=== PATIENT | male | born 1965 | race Caucasian/White ===

== ENCOUNTER 2022-03-04 15:05 | Emergency (ER) | payer SELFPAY ==
[2022-03-04] MEDS ORDERED: Sodium Chloride 0.9% 10 ML Syringe FLUSH PRN (15:10)
[2022-03-04] MEDS ORDERED: Tenecteplase 50 MG Kit IV ONE (15:13)
[2022-03-04] MEDS ORDERED: Heparin Sodium 5,000 Units/ML Vial IVPUSH ONE (15:14)
[2022-03-04] MEDS ORDERED: Heparin Sodium/D5W 25,000 UNITS/500 ML BAG IV SCH (15:15)
[2022-03-04] MEDS ORDERED: Nitroglycerin/D5W 25 MG/250 ML BOTTLE IV SCH (15:30)
[2022-03-04] MEDS ORDERED: Nitroglycerin/D5W 25 MG/250 ML BOTTLE ONE (15:32)
[2022-03-04 17:16] LABS: ESTIMATED GFR 89 mL/min (>60)
== END 2022-03-04 15:44 ==
LOC: JD.ED 15:05
DX: I21.02 ST elevation (STEMI) myocardial infarction involving left anterior descending coronary artery (principal)
CPT/HCPCS: 36415; 71045; 80053; 84484; 85025; 93005; 96374; 96375; 99285; J1644; J3101; J3490; 93010